=== PATIENT | female | born 1990 | race Two or more races ===

== ENCOUNTER 2021-08-20 20:48 | Emergency (ER) | payer OTHER ==
[~2021-08-20] VITALS: Ht 160 cm; Wt 59.9 kg
--- NOTE | 2021-08-20 21:02 | NUR ---
BIBS C/O ANXIETY ATTACK EARLIER TODAY +PALPITATIONS +HEADACHE. PATIENT ALERT AND ORIENTED X3. AMBULATORY WITH NON LABORED BREATHING. PATIENT IN BED 02 AWAITING MD QUIJANO.
[2021-08-20] MEDS ORDERED: LORAZEPAM 1 MG TABLET ONE (22:40)
[2021-08-20] MEDS ORDERED: LORA-259 PO (22:57)
[2021-08-20] MEDS ORDERED: LORAZEPAM 1 MG TABLET PO ONE (23:00)
--- NOTE | 2021-08-20 23:18 | NUR ---
Patient discharged to home in stable condition. Written and verbal after care instructions given. Patient verbalizes understanding of instruction.
[2021-08-20 23:21] VITALS: BP 153/92
== END 2021-08-20 23:22 | disposition home or self-care (01) ==
LOC: ER 20:59
DX: F41.0 Panic disorder [episodic paroxysmal anxiety] (principal); Z60.2 Problems related to living alone; Z79.52 Long term (current) use of systemic steroids

== ENCOUNTER 2023-09-17 15:02 | Emergency (ER) | payer OTHER ==
[~2023-09-17] VITALS: Ht 160 cm; Wt 59.9 kg
[~2023-09-17 15:02] MED LIST: LORA-259 PO
[2023-09-17] MEDS ORDERED: MORPHINE SULFATE INJ 4 MG/ML DISP.SYRIN ONE (15:29)
[2023-09-17] MEDS ORDERED: ONDANSETRON HCL/PF 4 MG/2 ML VIAL ONE (15:29)
[2023-09-17 15:33] LABS: BASOPHILS % (AUTO) 0.3 % (0.0-2.0); EOSINOPHILS % (AUTO) 0.3 % (0.0-6.0); HEMATOCRIT 35 % (33-45); HEMOGLOBIN 11.2 g/dL (11.5-14.8); LYMPHOCYTES # (AUTO) 1.5 K/uL (0.8-4.8); LYMPHOCYTES % (AUTO) 14.3 % (20.0-44.0); MEAN CORPUSCULAR HEMOGLOBIN 25 PG (26.0-33.0); MEAN CORPUSCULAR HGB CONC 32 g/dl (31.0-36.0); MEAN CORPUSCULAR VOLUME 78 fL (82-100); MONOCYTES # (AUTO) 0.9 K/uL (0.1-1.30); MONOCYTES % (AUTO) 8.1 % (2.0-12.0); NEUTROPHILS # (AUTO) 8.2 K/uL (1.8-8.9); PLATELET COUNT (AUTO) 241 K/uL (150-450); RED BLOOD CELL COUNT(AUTO) 4.43 MIL/uL (4.0-5.2); RED CELL DISTRIBUTION WIDTH 15.2 % (11.5-15.0); WHITE BLOOD COUNT (AUTO) 10.7 K/uL (4.3-11.0)
[2023-09-17] MEDS: MORPHINE SULFATE INJ 2 MG/ML DISP.SYRIN IV ONE (15:35)
[2023-09-17] MEDS: ONDANSETRON HCL/PF - ER 4 MG/2 ML VIAL IV ONE (15:36)
[2023-09-17 15:40] LABS: APPEARANCE,URINE CLOUDY (CLEAR); BILIRUBIN,URINE NEGATIVE (NEGATIVE); BLOOD, URINE NEGATIVE Ery/uL (NEGATIVE); COLOR,URINE YELLOW (YELLOW); KETONES,URINE TRACE mg/dL (NEGATIVE); LEUKOCYTE ESTERASE ,URINE TRACE (NEGATIVE); NITRITE, URINE NEGATIVE (NEGATIVE); PROTEIN,URINE NEGATIVE (NEGATIVE); UGLUCOSE NEGATIVE (NEGATIVE)
[2023-09-17 15:45] LABS: PREGNANCY TEST URINE QUAL NEGATIVE (NEGATIVE)
[2023-09-17 16:01] LABS: ALBUMIN 3.1 g/dL (3.4-5.0); BILIRUBIN,DIRECT 0.2 mg/dL (0.0-0.2); BILIRUBIN,TOTAL 0.4 mg/dL (0.2-1.0); CALCIUM, SERUM 8.4 mg/dL (8.5-10.1); CREATININE 0.7 mg/dL (0.6-1.3)
[2023-09-17 16:10] LABS: ADD URINE CULTURE NO; BACTERIA,URINE 1+ /HPF (None Seen); RBC,URINE NONE SEEN /HPF (0-2); URINE AMORPHOUS URATE Many /HPF (None Seen)
[2023-09-17 16:11] LABS: WBC,URINE 0-2 /HPF (0-3)
[2023-09-17] MEDS ORDERED: IV NS 0.9% 250 ML IV ONE (16:37)
[2023-09-17] MEDS ORDERED: CT SWABBABLE VALVE TRANS SET 1 EA INFUS.SET MC ONE (16:37)
[2023-09-17] MEDS ORDERED: IOHEXOL-300 100 ML VIAL IV ONE (16:37)
[2023-09-17] MEDS ORDERED: IBUP-1955 PO (17:51)
[2023-09-17] MEDS ORDERED: ACET-2605 PO (17:51)
[2023-09-17] MEDS ORDERED: NITR100C PO (17:51)
[2023-09-17 18:09] VITALS: BP 128/67; TEMP 98; O2SAT 98
== END 2023-09-17 18:10 | disposition home or self-care (01) ==
LOC: ER 15:08
DX: N83.201 Unspecified ovarian cyst, right side (principal); R19.00 Intra-abdominal and pelvic swelling, mass and lump, unspecified site; R10.2 Pelvic and perineal pain; Z79.899 Other long term (current) drug therapy; Z60.2 Problems related to living alone
CPT/HCPCS: 99285; 74177; 96374; 76856; 96375; 85025; 80048; 83690; 80076; 84703; 81001; 36415; J2270; J2405; J7050; Q9967

== ENCOUNTER 2023-09-23 01:44 | Emergency (ER) | payer OTHER ==
[~2023-09-23] VITALS: Ht 162.6 cm; Wt 61.2 kg
[~2023-09-23 01:44] MED LIST changes: +ACET-2605 PO; +IBUP-1955 PO; +NITR100C PO
[2023-09-23] MEDS ORDERED: ONDANSETRON HCL/PF 4 MG/2 ML VIAL ONE ×5 (01:57→15:07)
[2023-09-23] MEDS ORDERED: PANTOPRAZOLE 40 MG VIAL ONE (01:57)
[2023-09-23] MEDS ORDERED: MORPHINE SULFATE INJ 2 MG/ML DISP.SYRIN ONE ×3 (01:58→12:47)
[2023-09-23] MEDS: ONDANSETRON HCL/PF 4 MG/2 ML VIAL IVP ONE (02:20)
[2023-09-23] MEDS: IV NS 0.9% 1,000 ML BAG IV ONE ×2 (02:20→13:00)
[2023-09-23] MEDS: MORPHINE SULFATE INJ 2 MG/ML DISP.SYRIN IV ONE ×3 (02:20→12:53)
[2023-09-23] MEDS: PANTOPRAZOLE 40 MG VIAL IV ONE (02:20)
[2023-09-23] MEDS: ONDANSETRON HCL/PF 4 MG/2 ML VIAL IV ONE ×2 (03:01→15:08)
[2023-09-23 03:45] LABS: BASOPHILS % (AUTO) 0.1 % (0.0-2.0); HEMATOCRIT 31 % (33-45); HEMOGLOBIN 10.1 g/dL (11.5-14.8); LYMPHOCYTES # (AUTO) 0.5 K/uL (0.8-4.8); LYMPHOCYTES % (AUTO) 4.6 % (20.0-44.0); MEAN CORPUSCULAR HEMOGLOBIN 25 PG (26.0-33.0); MEAN CORPUSCULAR HGB CONC 33 g/dl (31.0-36.0); MEAN CORPUSCULAR VOLUME 77 fL (82-100); MONOCYTES # (AUTO) 0.6 K/uL (0.1-1.30); NEUTROPHILS # (AUTO) 9.6 K/uL (1.8-8.9); NEUTROPHILS % (AUTO) 89.3 % (43.0-81.0); PLATELET COUNT (AUTO) 338 K/uL (150-450); RED BLOOD CELL COUNT(AUTO) 4.02 MIL/uL (4.0-5.2); RED CELL DISTRIBUTION WIDTH 15.1 % (11.5-15.0); WHITE BLOOD COUNT (AUTO) 10.7 K/uL (4.3-11.0)
[2023-09-23 03:54] LABS: CALCIUM, SERUM 7.6 mg/dL (8.5-10.1); CREATININE 0.5 mg/dL (0.6-1.3); POTASSIUM 3.6 mmol/L (3.5-5.1)
[2023-09-23 03:58] LABS: INR 1.13 (0.91-1.10); PARTIAL THROMBOPLASTIN TIME 30.5 SEC (24.3-34.3); PROTHROMBIN TIME 11.9 SECS (9.2-11.1)
[2023-09-23 04:00] LABS: ALBUMIN 1.9 g/dL (3.4-5.0); BILIRUBIN,DIRECT 0.1 mg/dL (0.0-0.2); BILIRUBIN,TOTAL 0.2 mg/dL (0.2-1.0); TOTAL PROTEIN, SERUM 6.3 g/dL (6.4-8.2)
[2023-09-23] MEDS ORDERED: METOCLOPRAMIDE HCL 10 MG/2 ML VIAL ONE (05:43)
[2023-09-23] MEDS: METOCLOPRAMIDE HCL 10 MG/2 ML VIAL IV ONE (05:49)
[2023-09-23] MEDS: ONDANSETRON HCL/PF - ER 4 MG/2 ML VIAL IV ONE ×2 (08:09→12:53)
[2023-09-23] MEDS ORDERED: KETOROLAC TROMETHAMINE 15 MG/ML VIAL ONE ×2 (15:06→20:17)
[2023-09-23] MEDS: KETOROLAC TROMETHAMINE 15 MG/ML VIAL IV ONE (15:12)
[2023-09-23] MEDS: KETOROLAC TROMETHAMINE 15 MG/ML VIAL IV PRN (20:23)
[2023-09-24] MEDS ORDERED: ONDANSETRON HCL/PF 4 MG/2 ML VIAL ONE (03:25)
[2023-09-24] MEDS ORDERED: MORPHINE SULFATE INJ 4 MG/ML DISP.SYRIN ONE (03:25)
[2023-09-24] MEDS: MORPHINE SULFATE INJ 2 MG/ML DISP.SYRIN IV ONE (03:26)
[2023-09-24] MEDS: ONDANSETRON HCL/PF 4 MG/2 ML VIAL IV ONE (03:26)
[2023-09-24] MEDS ORDERED: KETOROLAC TROMETHAMINE 15 MG/ML VIAL ONE ×2 (11:48→16:17)
[2023-09-24 16:41] VITALS: BP 134/78; TEMP 98.2; O2SAT 98
== END 2023-09-24 16:41 | disposition left against medical advice (07) ==
LOC: ER 01:50
DX: K56.600 Partial intestinal obstruction, unspecified as to cause (principal); R10.13 Epigastric pain; R11.2 Nausea with vomiting, unspecified; Z60.2 Problems related to living alone; Z79.899 Other long term (current) drug therapy
CPT/HCPCS: 99285; 74176; 96374; 96375; 96361; 71045; 74018; 96376 ×2; 85025; 80048; 83690; 80076; 36415; 85730; J2765; J2405 ×8; J7030 ×2; C9113; A4223; J2270 ×3; J1885 ×4